=== PATIENT | female | born 1945 | race Caucasian/White ===

== ENCOUNTER 2016-10-12 18:17 | Emergency (ER) | payer MEDICARE, OTHER ==
[~2016-10-12] VITALS: Ht 152.4 cm; Wt 67.0 kg
[~2016-10-12 18:17] MED LIST: ALBU1AER INH; AMLO5 OR; AMOX500T PO; ENAL10TA7 PO; GABA300 PO; GLUC1000 PO; SIMV10TA OR; TAB-TAB PO; VALA500 PO; ZOVI400T15 PO; [UNRECOGNIZED DRUG - CODE] IN
[2016-10-12 18:28] VITALS: BP 127/76; PULSE 71; RESP 18; TEMP 97.9; O2SAT 95
[2016-10-12] MEDS ORDERED: AMLO5 PO (18:41)
[2016-10-12] MEDS ORDERED: [UNRECOGNIZED DRUG - CODE] INH (18:41)
[2016-10-12] MEDS ORDERED: GABA300C5 PO (18:41)
[2016-10-12] MEDS ORDERED: METF500T PO (18:41)
[2016-10-12] MEDS ORDERED: SIMV10TA PO (18:41)
[2016-10-12] MEDS ORDERED: ALBUAER3 INH (18:41)
[2016-10-12] MEDS ORDERED: ASPI81CH37 CHEW (18:42)
--- NOTE | 2016-10-12 19:35 | PD ---
HPI Chief Complaint: Dizziness Time Seen by Provider: 19:21 Travel History International Travel<30 days: No Contact w/Intl Traveler<30days: No Traveled to known affect area: No History of Present Illness HPI The patient is a 71-year-old female that states she has dizziness every day of her life but she came in today because she was tired, has a cough and nauseated. She denies vomiting or any diarrhea. She has some slight right upper quadrant abdominal pain when she coughs. She denies any chest pain or shortness of breath. She denies any radiation of pain, numbness or weakness of any extremities except her right leg was weak for a few minutes when she came to the emergency department but it is totally covered now and is full strength. She denies any vertigo. PFSH Past Medical History High Cholesterol: Yes Diabetes: Yes Patient Takes Glucophage: Yes (UNKNOWN) Diminished Hearing: No Hypertension: Yes Respiratory: Yes Immunizations Current: Yes Sleep Apnea: Yes Tetanus Vaccination: > 5 Years Influenza Vaccination: Yes ?: Not Menopausal: Yes Dilation and Curettage (D&C): Yes Past Surgical History Tonsillectomy: Yes Other Surgery: Yes (CYST ON SPINE CARPAL TUNNEL) Social History Alcohol Use: No Tobacco Use: No Substance Use: No Allergies-Medications (Allergen,Severity, Reaction): Coded Allergies: Codeine (Verified Allergy, Unknown, 10/12/16) Darvon (Verified Allergy, Unknown, 10/12/16) Tylenol #3 (Verified Allergy, Unknown, 10/12/16) Reported Meds & Prescriptions Reported Meds & Active Scripts Active Zofran (Ondansetron HCl) 4 Mg Tab 4 Mg PO Q6HR PRN Reported Aspirin Low Dose (Aspirin) 81 Mg Chew 162 Mg CHEW DAILY Simvastatin 10 Mg Tab 10 Mg PO DAILY Metformin (Metformin HCl) 500 Mg Tab 500 Mg PO BIDPC With meals Gabapentin 300 Mg Cap 300 Mg PO HS Norvasc (Amlodipine Besylate) 5 Mg Tab 5 Mg PO DAILY [place] Inh (Ciclesonide Inh) 160 Mcg/Act Aero 160 Mcg INH BID Proair Hfa 8.5 GM Inh (Albuterol Sulfate) 90 Mcg/Act Aer 2 Puff INH Q4-6H PRN 108 mcg/actuation Review of Systems Except as stated in HPI: all other systems reviewed are Neg Physical Exam Narrative GENERAL: The patient is alert, oriented 3 in no apparent distress. Her vital signs are normal. SKIN: Warm and dry. HEAD: Atraumatic. Normocephalic. EYES: Pupils equal and round. No scleral icterus. No injection or drainage. ENT: No nasal bleeding or discharge. Mucous membranes pink and moist. NECK: Trachea midline. No JVD. No carotid bruits are heard. CARDIOVASCULAR: Regular rate and rhythm. No murmur appreciated. RESPIRATORY: No accessory muscle use. Clear to auscultation. Breath sounds equal bilaterally. GASTROINTESTINAL: Abdomen soft, non-tender, nondistended. Hepatic and splenic margins not palpable. No guarding or rebound is present. MUSCULOSKELETAL: No obvious deformities. No clubbing. No cyanosis. No edema. NEUROLOGICAL: Awake and alert. No obvious cranial nerve deficits. Motor grossly within normal limits. Normal speech. PSYCHIATRIC: Appropriate mood and affect; insight and judgment normal. Data Data Last Documented VS Vital Signs Date Time Temp Pulse Resp B/P Pulse Ox O2 Delivery O2 Flow Rate FiO2 10/12/16 21:55 67 18 143/71 97 Room Air 10/12/16 18:28 97.9 Orders Electrocardiogram (10/12/16 19:35) Complete Blood Count With Diff (10/12/16 19:35) Comprehensive Metabolic Panel (10/12/16 19:35) Lipase (10/12/16 19:35) Urinalysis - C+S If Indicated (10/12/16 19:35) Chest, Pa & Lat (10/12/16 19:35) Ct Brain W/O Iv Contrast(Rout) (10/12/16 19:35) Sodium Chlor 0.9% 1000 Ml Inj (Ns 1000 M (10/12/16 20:00) Ondansetron Inj (Zofran Inj) (10/12/16 21:30) Sodium Chlor 0.9% 1000 Ml Inj (Ns 1000 M (10/12/16 21:45) Labs Laboratory Tests Test 10/12/16 10/12/16 19:25 21:30 White Blood Count 11.0 TH/MM3 Red Blood Count 5.01 MIL/MM3 Hemoglobin 14.6 GM/DL Hematocrit 44.7 % Mean Corpuscular Volume 89.3 FL Mean Corpuscular Hemoglobin 29.3 PG Mean Corpuscular Hemoglobin 32.8 % Concent Red Cell Distribution Width 12.9 % Platelet Count 234 TH/MM3 Mean Platelet Volume 8.6 FL Neutrophils (%) (Auto) 81.4 % Lymphocytes (%) (Auto) 8.2 % Monocytes (%) (Auto) 9.7 % Eosinophils (%) (Auto) 0.3 % Basophils (%) (Auto) 0.4 % Neutrophils # (Auto) 9.0 TH/MM3 Lymphocytes # (Auto) 0.9 TH/MM3 Monocytes # (Auto) 1.1 TH/MM3 Eosinophils # (Auto) 0.0 TH/MM3 Basophils # (Auto) 0.0 TH/MM3 CBC Comment DIFF FINAL Differential Comment Sodium Level 138 MEQ/L Potassium Level 3.6 MEQ/L Chloride Level 102 MEQ/L Carbon Dioxide Level 27.2 MEQ/L Anion Gap 9 MEQ/L Blood Urea Nitrogen 9 MG/DL Creatinine 0.84 MG/DL Estimat Glomerular Filtration 66 ML/MIN Rate Random Glucose 155 MG/DL Calcium Level 8.5 MG/DL Total Bilirubin 0.5 MG/DL Aspartate Amino Transf 25 U/L (AST/SGOT) Alanine Aminotransferase 34 U/L (ALT/SGPT) Alkaline Phosphatase 69 U/L Total Protein 7.7 GM/DL Albumin 3.5 GM/DL Lipase 84 U/L Urine Collection Type VOIDED Urine Color STRAW Urine Turbidity CLEAR Urine pH 6.0 Urine Specific [place] 1.010 Urine Protein 100 mg/dL Urine Glucose (UA) NEG mg/dL Urine Ketones 15 mg/dL Urine Occult Blood SMALL Urine Nitrite NEG Urine Bilirubin NEG Urine Leukocyte Esterase NEG Urine WBC 0-2 /hpf Urine Squamous Epithelial 0-2 /hpf Cells Microscopic Urinalysis Comment CULT NOT INDICATED MDM Medical Decision Making Medical Screen Exam Complete: Yes Emergency Medical Condition: Yes Medical Record Reviewed: Yes Interpretation(s) The chest x-ray shows linear atelectasis or scarring at the lung bases but no acute findings. The EKG shows sinus rhythm with a rate of [address] elevation or depression. The CT is normal for a patient of this age. The CBC is normal except for 81% neutrophils. The complete metabolic profile shows a GFR of 66 but is otherwise unremarkable. The urinalysis is normal except for small blood and 100 mg protein. Culture is not indicated in the urine. Differential Diagnosis Pneumonia, ischemic CVA, bronchitis, electrolyte disorder, anemia, renal insufficiency, viral syndrome Narrative Course The patient appears to have a viral syndrome. She does not have any physical findings of a bacterial infection and the blood work/imaging is essentially normal. PLAN: The patient will be given a prescription for Zofran and follow-up with her primary care physician. She should increase her liquid intake. Diagnosis Primary Impression: Viral syndrome Additional Instructions: The Zofran is one tablet every 6 hours as needed for nausea. He may wish to take it every 6 hours to prevent nausea/vomiting. Follow-up next week with your primary care physician. Med/Other Pt SpecificInfo: Prescription(s) given Scripts Ondansetron (Zofran)4 Mg Tab4 Mg PO Q6HR PRN (NAUSEA OR VOMITING) #21 TAB Ref 0 Prov:Tray Goel MD 10/12/16 Disposition: 01 DISCHARGE HOME Condition: Stable Tray Goel MD Oct 12, 2016 19:35
[2016-10-12 19:51] LABS: BASOPHIL % 0.4 % (0.0-2.0); EOSINOPHIL % 0.3 % (0.0-4.0); HEMATOCRIT 44.7 % (35.0-46.0); LYMPH % 8.2 % (9.0-44.0); LYMPHOCYTE # 0.9 TH/MM3 (1.0-4.8); MEAN CELL VOLUME 89.3 FL (80.0-100.0); MEAN CORPUSCULAR HEMOGLOBIN 29.3 PG (27.0-34.0); MEAN CORPUSCULAR HGB CONC 32.8 % (32.0-36.0); MONO % 9.7 % (0.0-8.0); NEUT % 81.4 % (16.0-70.0); PLATELET COUNT 234 TH/MM3 (150-450); RED BLOOD COUNT 5.01 MIL/MM3 (4.00-5.30); RED CELL DISTRIBUTION WIDTH 12.9 % (11.6-17.2)
[2016-10-12 19:52] LABS: HEMO FLAGS DIFF FINAL
[2016-10-12 19:53] LABS: CHLORIDE 102 MEQ/L (98-107); POTASSIUM 3.6 MEQ/L (3.5-5.1); SODIUM (NA) 138 MEQ/L (136-145)
[2016-10-12 19:56] LABS: ANION GAP 9 MEQ/L (5-15); BICARBONATE 27.2 MEQ/L (21.0-32.0)
[2016-10-12 19:57] LABS: BLOOD UREA NITROGEN 9 MG/DL (7-18)
[2016-10-12 19:59] LABS: ALT (GPT) 34 U/L (10-53); AST (GOT) 25 U/L (15-37)
[2016-10-12 20:00] VITALS: BP 124/76; PULSE 74; RESP 18; O2SAT 97
[2016-10-12 20:00] LABS: GLOMERULAR FILTRATION RATE 66 ML/MIN (>89)
[2016-10-12] MEDS ORDERED: SODIUM CHLOR 0.9% 1000 ML INJ 1,000 ML IV SCH ×2 (20:00→21:45)
[2016-10-12 20:01] LABS: TOTAL BILIRUBIN ADULT 0.5 MG/DL (0.2-1.0)
[2016-10-12 20:02] LABS: ALKALINE PHOSPHATASE 69 U/L (45-117)
--- NOTE | 2016-10-12 20:50 | RADHPO ---
EXAM DATE/TIME: 10/12/2016 19:46 [facility] COMPARISON: No previous studies available for comparison. INDICATIONS : Dizzy and shortness of breath. MEDICAL HISTORY : SURGICAL HISTORY : None. ENCOUNTER: Initial ACUITY: 1 day PAIN SCORE: 6/10 LOCATION: Bilateral chest FINDINGS: PA and lateral views of the chest demonstrate linear atelectasis or scarring at the lung bases. No fo valentine consolidation. No effusion. No pneumothorax. Heart size normal. CONCLUSION: 1. Linear atelectasis or scarring at the lung bases. No acute findings. David Veras MD on October 12, 2016 at 20:48 Board Certified Radiologist. This report was verified electronically.
--- NOTE | 2016-10-12 21:16 | RADHPO ---
EXAM DATE/TIME: 10/12/2016 19:58 [facility] COMPARISON: No previous studies available for comparison. INDICATIONS : Dizziness and nausea. RADIATION DOSE: 59.9 CTDIvol (mGy) MEDICAL HISTORY : Hypertension. Diabetes. SURGICAL HISTORY : Tonsillectomy. ENCOUNTER: Initial ACUITY: 1 day PAIN SCALE: 7/10 LOCATION: cranial TECHNIQUE: Multiple contiguous axial images were obtained of the head. Using automated exposure control and adj ustment of the mA and/or kV according to patient size, radiation dose was kept as low as reasonably a chievable to obtain optimal diagnostic quality images. FINDINGS: CEREBRUM: The ventricles are normal for age. No evidence of midline shift, mass lesion, hemorrhage or acute in farction. No extra-axial fluid collections are seen. POSTERIOR FOSSA: The cerebellum and brainstem are intact. The 4th ventricle is midline. The cerebellopontine angle i s unremarkable. EXTRACRANIAL: The visualized portion of the orbits is intact. SKULL: The calvaria is intact. No evidence of skull fracture. CONCLUSION: Normal examination for a patient of this age. David Veras MD on October 12, 2016 at 21:14 Board Certified Radiologist. This report was verified electronically.
[2016-10-12] MEDS ORDERED: ZOFR4TAB PO (21:28)
[2016-10-12] MEDS ORDERED: ONDANSETRON HCL 4 MG/2 ML VIAL IV PUSH ONE (21:30)
[2016-10-12 21:42] LABS: BLOOD, URINE SMALL (NEG); GLUCOSE,URINE NEG (NEG); KETONE, URINE 15 mg/dL (NEG); NITRITE,URINE NEG (NEG)
[2016-10-12 21:53] LABS: METHOD OF COLLECTION VOIDED; URINE COLOR STRAW (YELLW/STRAW)
[2016-10-12 21:54] LABS: COMMENT (UR) CULT NOT INDICATED; CULTURE IF INDICATED CULT NOT INDICATED; SQUAMOUS EPITHELIAL CELL URINE 0-2 /hpf (0-5); WBC, URINE 0-2 /hpf (0-5)
[2016-10-12 21:55] VITALS: BP 143/71; PULSE 67; RESP 18; O2SAT 97
--- NOTE | 2016-10-13 12:30 | EKG ---
Date Performed: 10/12/2016 Time Performed: 19:40:32 PTAGE: 71 years EKG: Sinus rhythm . Lateral ST-T changes are nonspecific Since previous tracing, no significant change noted Borderline ECG PREVIOUS TRACING : 06/19/2012 11.17 DOCTOR: Sayra Anguiano Interpretating Date/Time 10/13/2016 12:30:10
== END 2016-10-12 22:44 | disposition home or self-care (01) ==
LOC: PHED 18:17
DX: B34.9 Viral infection, unspecified (principal); R42 Dizziness and giddiness; R05 Cough; R11.0 Nausea; R94.31 Abnormal electrocardiogram [ECG] [EKG]; E78.00 Pure hypercholesterolemia, unspecified; E11.9 Type 2 diabetes mellitus without complications; I10 Essential (primary) hypertension; G47.30 Sleep apnea, unspecified
CPT/HCPCS: 70450; 71020; 80053; 81001; 83690; 85025; 93005; 96361; 96374; 99284; J2405; J7030